=== PATIENT | male | born 1970 | race Two or more races ===

== ENCOUNTER 2022-08-01 09:32 | Emergency (ER) | payer OTHER ==
[~2022-08-01] VITALS: Ht 175.3 cm; Wt 83.9 kg
[2022-08-01] MEDS ORDERED: SERTRALINE HCL100 MG PO (09:47)
== END 2022-08-01 13:39 | disposition home or self-care (01) ==
LOC: ER 09:32
DX: K52.89 Other specified noninfective gastroenteritis and colitis (principal); E11.9 Type 2 diabetes mellitus without complications; Z79.84 Long term (current) use of oral hypoglycemic drugs